=== PATIENT | female | born 1950 | race Caucasian/White ===

== ENCOUNTER 2018-03-28 19:24 | Inpatient (IN) | payer MEDICARE ==
[~2018-03-28] VITALS: Ht 160 cm; Wt 67.6 kg
[2018-03-28 19:29] VITALS: Ht 160 cm; Wt 67.6 kg
[2018-03-28] MEDS ORDERED: PAXIL PO (20:28)
[2018-03-28 20:38] LABS: BASOPHIL % 0.3 % (0-2); PLATELET COUNT 137 x10^3mcL (130-400); RED CELL DISTRIBUTION WIDTH 13.4 % (11.5-14.5)
[2018-03-28 20:48] LABS: CARBON DIOXIDE 24.8 mmol/L (21-32); CHLORIDE SERUM 110 mmol/L (98-107); CREATININE SERUM 0.9 mg/dL (0.6-1.0); GFR1 > 60 mL/min; GLUCOSE SERUM 147 mg/dL (74-106); SODIUM SERUM 142 mmol/L (136-145)
[2018-03-28 20:53] LABS: ALKALINE PHOSPHATASE 73 U/L (46-116); ALT/SGPT 20 U/L (14-59); AST/SGOT 25 U/L (15-37); BILIRUBIN TOTAL 0.62 mg/dL (0.20-1.00); LIPASE 255 IU/L (73-393)
[2018-03-28 20:57] LABS: ALBUMIN 3.1 g/dL (3.4-5.0)
[2018-03-28 22:22] VITALS: BP 118/63
[2018-03-28 23:12] VITALS: BP 103/51
[2018-03-29 04:12] VITALS: BP 90/54
[2018-03-29 05:22] LABS: BASOPHIL % 0.5 % (0-2); RED CELL DISTRIBUTION WIDTH 13.8 % (11.5-14.5)
[2018-03-29 05:24] LABS: PLATELET COUNT 104 x10^3mcL (130-400)
[2018-03-29 05:26] LABS: ALKALINE PHOSPHATASE 58 U/L (46-116); ALT/SGPT 17 U/L (14-59); AST/SGOT 23 U/L (15-37); BILIRUBIN TOTAL 0.53 mg/dL (0.20-1.00); CALCIUM 7.3 mg/dL (8.5-10.1); CHLORIDE SERUM 113 mmol/L (98-107); CREATININE SERUM 0.8 mg/dL (0.6-1.0); GFR1 > 60 mL/min; GLUCOSE SERUM 137 mg/dL (74-106); MAGNESIUM 1.8 mg/dL (1.8-2.4); PHOSPHOROUS 2.2 mg/dL (2.5-4.9); POTASSIUM SERUM 3.9 mmol/L (3.5-5.1); SODIUM SERUM 142 mmol/L (136-145)
[2018-03-29 05:27] LABS: ALBUMIN 2.7 g/dL (3.4-5.0)
[2018-03-29 08:01] VITALS: BP 97/58
[2018-03-29 11:00] VITALS: BP 91/50
[2018-03-29 15:20] VITALS: BP 105/62
[2018-03-29 20:19] VITALS: BP 104/56
[2018-03-29 20:47] LABS: microscopic required? NO
[2018-03-29 20:52] LABS: urine erythrocyte NEGATIVE (NEGATIVE)
[2018-03-30 05:29] VITALS: BP 98/55
[2018-03-30 07:25] LABS: ALKALINE PHOSPHATASE 60 U/L (46-116); ALT/SGPT 21 U/L (14-59); AST/SGOT 31 U/L (15-37); BILIRUBIN DIRECT 0.09 mg/dL (0.0-0.2); BILIRUBIN TOTAL 0.41 mg/dL (0.20-1.00); CALCIUM 7.6 mg/dL (8.5-10.1); CARBON DIOXIDE 23.9 mmol/L (21-32); CHLORIDE SERUM 114 mmol/L (98-107); CREATININE SERUM 0.9 mg/dL (0.6-1.0); GFR1 > 60 mL/min; GLUCOSE SERUM 140 mg/dL (74-106); POTASSIUM SERUM 4.2 mmol/L (3.5-5.1); SODIUM SERUM 146 mmol/L (136-145)
[2018-03-30 07:27] LABS: ALBUMIN 2.8 g/dL (3.4-5.0)
[2018-03-30 10:14] VITALS: BP 99/61
[2018-03-30 12:55] VITALS: BP 103/61
[2018-03-30 14:46] LABS: BASOPHIL % 0.5 % (0-2)
[2018-03-30] MEDS ORDERED: IND10 PO (14:56)
[2018-03-30] MEDS ORDERED: PROTONIX40 MG PO (14:57)
[2018-03-30 15:00] LABS: PLATELET COUNT 99 x10^3mcL (130-400)
[2018-03-30 15:13] VITALS: BP 103/61
== END 2018-03-30 15:55 | disposition home or self-care (01) | DRG 368 ==
LOC: ED 19:24 → IC 20:59 → DU 20:59 → IC 21:26 → DU 03-29 16:29
PROVIDERS: Emergency Medicine; Internal Medicine Gastroenterology; Internal Medicine Pulmonary Disease
PROC: 0DB68ZX Excision of Stomach, Via Natural or Artificial Opening Endoscopic, Diagnostic (ICD-10-PCS; principal; 2018-03-29 08:30)
DX: I85.11 Secondary esophageal varices with bleeding (principal); I81 Portal vein thrombosis; K70.30 Alcoholic cirrhosis of liver without ascites; F10.21 Alcohol dependence, in remission; F32.9 Major depressive disorder, single episode, unspecified; F41.9 Anxiety disorder, unspecified
CPT/HCPCS: 43235; C9113; J0171; J0696; J1200; J1610; J2250; J2310; J2354; J3010; J3490; J7030; J7042; Q0092; Q0162; Q9967

== ENCOUNTER 2018-08-06 18:57 | Emergency (ER) | payer BC ==
[~2018-08-06] VITALS: Ht 160 cm; Wt 71.7 kg
[~2018-08-06 18:57] MED LIST: IND10 PO; PAXIL PO; PROTONIX40 MG PO
[2018-08-06 19:22] VITALS: Ht 160 cm; Wt 71.7 kg
[2018-08-06 21:13] LABS: BASOPHIL % 0.6 % (0-2); PLATELET COUNT 103 x10^3mcL (130-400); RED CELL DISTRIBUTION WIDTH 14.7 % (11.5-14.5)
[2018-08-06 21:23] LABS: CALCIUM 8.8 mg/dL (8.5-10.1); CARBON DIOXIDE 27.1 mmol/L (21-32); CHLORIDE SERUM 107 mmol/L (98-107); CREATININE SERUM 0.8 mg/dL (0.6-1.0); GFR1 > 60 mL/min; GLUCOSE SERUM 108 mg/dL (74-106); POTASSIUM SERUM 4.5 mmol/L (3.5-5.1); SODIUM SERUM 142 mmol/L (136-145)
[2018-08-06 21:28] LABS: ALBUMIN 3.6 g/dL (3.4-5.0); ALKALINE PHOSPHATASE 109 U/L (46-116); ALT/SGPT 23 U/L (14-59); AST/SGOT 29 U/L (15-37)
[2018-08-07 00:24] VITALS: BP 122/74
== END 2018-08-07 00:24 | disposition home or self-care (01) ==
LOC: ED 18:57
PROVIDERS: Emergency Medicine
DX: R10.32 Left lower quadrant pain (principal); S23.9XXA Sprain of unspecified parts of thorax, initial encounter; F32.9 Major depressive disorder, single episode, unspecified; W01.0XXA Fall on same level from slipping, tripping and stumbling without subsequent striking against object, initial encounter; Y93.E1 Activity, personal bathing and showering; Y92.091 Bathroom in other non-institutional residence as the place of occurrence of the external cause; Y99.8 Other external cause status
CPT/HCPCS: 36415; J1885; J2270; Q9967

== ENCOUNTER 2018-10-19 17:51 | Emergency (ER) | payer OTHER ==
[~2018-10-19] VITALS: Ht 160 cm; Wt 71.2 kg
[2018-10-19 18:02] VITALS: Ht 160 cm; Wt 71.2 kg
[2018-10-19 19:09] VITALS: BP 127/68
== END 2018-10-19 19:10 | disposition home or self-care (01) ==
LOC: ED 17:51
DX: B34.9 Viral infection, unspecified (principal); B00.1 Herpesviral vesicular dermatitis; F32.9 Major depressive disorder, single episode, unspecified